=== PATIENT | male | born 1990 | race African-American/Black ===

== ENCOUNTER 2016-08-31 20:30 | Emergency (ER) | payer SELFPAY ==
[~2016-08-31] VITALS: Ht 177.8 cm; Wt 85.7 kg
[2016-08-31] MEDS ORDERED: LORazepam 0.5 MG TAB PO ONE (21:45)
[2016-08-31] MEDS ORDERED: LORazepam 2MG/ML-1ML VIAL IV ONE (23:00)
[2016-09-01 02:26] LABS: Urine RBC None Seen /hpf (0 - 3)
[2016-09-01 02:34] LABS: Urine Bilirubin Negative (Negative); Urine Blood Negative /uL (Negative); Urine Color Colorless (Yellow); Urine Glucose Normal (Normal); Urine Ketone Negative (Negative); Urine Nitrite Negative (Negative); Urine Squamous Epithelial Cell FEW /hpf (<5); Urine Urobilinogen Normal (Negative)
[2016-09-01 03:30] VITALS: BP 110/60
== END 2016-09-01 03:32 | disposition home or self-care (01) ==
LOC: ER 20:53
DX: F41.9 Anxiety disorder, unspecified (principal)
CPT/HCPCS: 71010; 81001; 93005; 96374; 99285; G0434; J2060

== ENCOUNTER 2016-09-03 16:54 | Emergency (ER) | payer MEDICAID ==
[~2016-09-03] VITALS: Ht 175.3 cm; Wt 81.6 kg
[2016-09-03] MEDS ORDERED: OLANZapine 5 MG TAB PO ONE (18:00)
[2016-09-03 19:46] VITALS: BP 123/77
== END 2016-09-03 21:56 | disposition home or self-care (01) ==
LOC: ER 16:54 → EDBD 16:54 → ER 21:56
DX: F41.9 Anxiety disorder, unspecified (principal); F31.9 Bipolar disorder, unspecified; F20.9 Schizophrenia, unspecified; Z88.8 Allergy status to other drugs, medicaments and biological substances

== ENCOUNTER 2016-12-15 12:09 | Emergency (ER) | payer MEDICAID ==
[2016-12-15 12:09] VITALS: BP 116/76
[2016-12-15] MEDS ORDERED: LORazepam 2MG/ML-1ML VIAL IM ONE (13:15)
== END 2016-12-15 13:59 | disposition home or self-care (01) ==
LOC: ER 12:09
DX: F41.1 Generalized anxiety disorder (principal); F20.9 Schizophrenia, unspecified; F32.9 Major depressive disorder, single episode, unspecified
CPT/HCPCS: 93005; 96372; 99284; J2060

== ENCOUNTER 2017-03-28 05:20 | Emergency (ER) | payer MEDICAID ==
[~2017-03-28] VITALS: Ht 175.3 cm; Wt 79.4 kg
[2017-03-28 07:42] LABS: Basophils # (auto) 0 uL; Eosinophils # (auto) 0.2 uL; Eosinophils % (auto) 3.5 % (0.0-7.0); Hematocrit 44.1 % (41.0-53.0); Hemoglobin 14.3 g/dL (13.5-17.5); Lymphocytes # (auto) 2.1 uL; Lymphocytes % (auto) 46.1 % (10.0-50.0); Mean Corpuscular Hemoglobin 27.5 pg (28.0-32.0); Mean Corpuscular Hgb Conc. 32.5 g/dL (32.0-36.0); Mean Corpuscular Volume 84.7 fL (80.0-100.0); Mean Platelet Volume 9.9 fL (6.9-10.8); Monocytes # (auto) 0.4 uL; Monocytes % (auto) 8.4 % (0.0-12.0); Neutrophils # (auto) 1.8 uL; Nucleated Red Blood Cells % 0.2 %; Platelet Count (auto) 156 10^3/uL (140-450); Red Cell Distribution Width 13.8 % (11.8-14.3); White Blood Cell 4.5 10^3/uL (4.4-10.8)
[2017-03-28 08:20] LABS: BUN/Creatinine Ratio 10.1; Bilirubin, Total 0.4 mg/dL (0.2-1.0); Calcium 9.2 mg/dL (8.5-10.1); Potassium 3.8 mmol/L (3.5-5.1); Total Protein 7.6 g/dL (6.4-8.2)
[2017-03-28 08:26] VITALS: BP 112/78
== END 2017-03-28 08:48 | disposition home or self-care (01) ==
LOC: EDBD 05:20 → ER 05:37
DX: K59.00 Constipation, unspecified (principal); R10.13 Epigastric pain; Z88.8 Allergy status to other drugs, medicaments and biological substances
CPT/HCPCS: 36415; 74176; 80053; 82150; 83690; 85025

== ENCOUNTER 2020-12-13 07:04 | Emergency (ER) | payer MEDICAID ==
[~2020-12-13] VITALS: Ht 175.3 cm; Wt 77.1 kg
[2020-12-13] MEDS ORDERED: HALOPERIDOL LACTATE 5 MG/ML INJ VIAL IM ONE (07:45)
[2020-12-13] MEDS ORDERED: LORazepam 0.5 MG TAB PO ONE (07:45)
[2020-12-13] MEDS ORDERED: diphenhdrAMINE HCL 50 MG/1 ML VL IM ONE (08:15)
[2020-12-13 10:34] LABS: Basophils # (auto) 0.1 10 ^3/uL (0-0.2); Basophils % (auto) 1.1 % (0.0-2.0); Eosinophils # (auto) 0 10 ^3/uL (0-0.8); Eosinophils % (auto) 0.7 % (0.0-7.0); Hematocrit 41.7 % (41.0-53.0); Hemoglobin 13.7 g/dL (13.5-17.5); Lymphocytes # (auto) 1.5 10 ^3/uL (0.4-5.4); Monocytes # (auto) 0.5 10 ^3/uL (0-1.3); Monocytes % (auto) 9.7 % (0.0-12.0); Neutrophils % (auto) 59.5 % (37.0-80.0); Nucleated Red Blood Cells % 0.2 %; Red Cell Distribution Width 15.1 % (11.8-14.3); White Blood Cell 5.1 10^3/uL (4.4-10.8)
[2020-12-13 10:50] LABS: Albumin 4.3 g/dL (3.4-5.0); Anion Gap 4 (5-15); Blood Alcohol < 3.0 mg/dL (0-5); Blood Urea Nitrogen 14 mg/dL (7-18); Calcium 9.3 mg/dL (8.5-10.1); Carbon Dioxide 27 mmol/L (21-32); Chloride 110 mmol/L (98-107); Glucose 68 mg/dL (74-106); Potassium 3.9 mmol/L (3.5-5.1); Sodium 141 mmol/L (136-145)
[2020-12-13 10:51] LABS: Acetaminophen < 2.0 ug/mL (10-30); Salicylate < 1.7 mg/dL (2.8-20.0)
[2020-12-13 10:54] LABS: Alanine Aminotransferase 46 U/L (16-61); Alkaline Phosphatase 57 U/L (45-117); Aspartate Aminotransferase 82 U/L (15-37); Bilirubin, Total 1.6 mg/dL (0.2-1.0); GFR African American 104 mL/min; GFR Non-African American 86 mL/min; Total Protein 7.7 g/dL (6.4-8.2)
[2020-12-13 11:05] VITALS: BP 141/83
[2020-12-13 11:11] LABS: Urine Bacteria NONE SEEN /hpf (None Seen); Urine Blood Negative /uL (Negative); Urine Mucus FEW (None Seen); Urine Specific Gravity 1.029 (1.001-1.035); Urine WBC 1 /hpf (0 - 3)
[2020-12-13 11:26] LABS: Amphetamine Screen, Urine NEGATIVE (NEGATIVE); Barbiturate Scree,Urine NEGATIVE (NEGATIVE); Benzodiazephine Screen, Urine NEGATIVE (NEGATIVE); Cannabinoid Screen, Urine POSITIVE (NEGATIVE); Cocaine Screen, Urine NEGATIVE (NEGATIVE); Opiate Scree,Urine NEGATIVE (NEGATIVE); Phencyclidine Screen, Urine NEGATIVE (NEGATIVE)
== END 2020-12-13 18:30 | disposition home or self-care (01) ==
LOC: ER 07:04
DX: F31.9 Bipolar disorder, unspecified (principal); F20.9 Schizophrenia, unspecified; F12.90 Cannabis use, unspecified, uncomplicated; F41.9 Anxiety disorder, unspecified; R41.0 Disorientation, unspecified
CPT/HCPCS: 36415; 80053; 80307; 80320; 80329; 81001; 85025; 96372; 99284; J1630

== ENCOUNTER 2021-05-13 00:40 | Emergency (ER) | payer MEDICAID ==
[~2021-05-13] VITALS: Ht 175.3 cm; Wt 79.4 kg
[2021-05-13 02:25] VITALS: BP 108/79
== END 2021-05-13 02:38 | disposition home or self-care (01) ==
LOC: ER 00:42
DX: J06.9 Acute upper respiratory infection, unspecified (principal); R53.83 Other fatigue; Z88.8 Allergy status to other drugs, medicaments and biological substances; Z20.822 Contact with and (suspected) exposure to COVID-19
CPT/HCPCS: 36415; 87426

== ENCOUNTER 2021-10-17 21:56 | Emergency (ER) | payer MEDICAID ==
[~2021-10-17] VITALS: Ht 182.9 cm; Wt 77.1 kg
[2021-10-17 23:37] LABS: Basophils # (auto) 0 10 ^3/uL (0-0.2); Eosinophils # (auto) 0.1 10 ^3/uL (0-0.8); Eosinophils % (auto) 2.8 % (0.0-7.0); Hematocrit 38.8 % (41.0-53.0); Hemoglobin 13.3 g/dL (13.5-17.5); Lymphocytes # (auto) 1.6 10 ^3/uL (0.4-5.4); Lymphocytes % (auto) 46.5 % (10.0-50.0); Mean Corpuscular Hemoglobin 29.6 pg (28.0-32.0); Mean Corpuscular Hgb Conc. 34.3 g/dL (32.0-36.0); Mean Corpuscular Volume 86.2 fL (80.0-100.0); Monocytes # (auto) 0.3 10 ^3/uL (0-1.3); Monocytes % (auto) 8.2 % (0.0-12.0); Neutrophils # (auto) 1.4 10 ^3/uL (1.6-8.6); Neutrophils % (auto) 41.5 % (37.0-80.0); Nucleated Red Blood Cells % 0.1 %; Red Cell Distribution Width 14.7 % (11.8-14.3); White Blood Cell 3.4 10^3/uL (4.4-10.8)
[2021-10-17 23:50] LABS: Albumin 3.6 g/dL (3.4-5.0); Calcium 9.4 mg/dL (8.5-10.1); Potassium 3.8 mmol/L (3.5-5.1)
[2021-10-17 23:52] LABS: BUN/Creatinine Ratio 9.8
[2021-10-17 23:54] LABS: Bilirubin, Total 0.4 mg/dL (0.2-1.0); Total Protein 6.8 g/dL (6.4-8.2)
[2021-10-18] MEDS ORDERED: LORazepam 2MG/ML-1ML VIAL IV ONE ×2 (01:15→11:30)
[2021-10-18 07:27] VITALS: BP 120/89
[2021-10-18 11:22] LABS: Alcohol, Urine < 3.0 mg/dL (0-10); Amphetamine Screen, Urine NEGATIVE (NEGATIVE); Barbiturate Scree,Urine NEGATIVE (NEGATIVE); Benzodiazephine Screen, Urine NEGATIVE (NEGATIVE); Cannabinoid Screen, Urine NEGATIVE (NEGATIVE); Cocaine Screen, Urine NEGATIVE (NEGATIVE); Opiate Scree,Urine NEGATIVE (NEGATIVE); Phencyclidine Screen, Urine NEGATIVE (NEGATIVE)
[2021-10-18 11:56] LABS: Urine Bacteria FEW /hpf (None Seen); Urine Blood Negative /uL (Negative); Urine Specific Gravity 1.015 (1.001-1.035); Urine WBC 3 /hpf (0 - 3)
[2021-10-18] MEDS ORDERED: HALOPERIDOL LACTATE 5 MG/ML INJ VIAL IM ONE (15:30)
[2021-10-18] MEDS ORDERED: HALOPERIDOL LACTATE 5 MG/ML INJ VIAL ONE (15:31)
== END 2021-10-18 16:12 | disposition left against medical advice (07) ==
LOC: EDBD 21:56 → ER 22:02
DX: R45.851 Suicidal ideations (principal); F41.9 Anxiety disorder, unspecified; F32.9 Major depressive disorder, single episode, unspecified; F20.9 Schizophrenia, unspecified; Z20.822 Contact with and (suspected) exposure to COVID-19
CPT/HCPCS: 36415; 80053; 80307; 81001; 85025; 87426; 96372; 96374; 96376; 99285; J1630; J2060

== ENCOUNTER 2021-12-13 00:39 | Emergency (ER) | payer MEDICAID ==
[2021-12-13] MEDS ORDERED: HALOPERIDOL LACTATE 5 MG/ML INJ VIAL IM ONE (01:30)
[2021-12-13 01:41] LABS: Basophils # (auto) 0 10 ^3/uL (0-0.2); Basophils % (auto) 1.2 % (0.0-2.0); Eosinophils # (auto) 0 10 ^3/uL (0-0.8); Hematocrit 41.9 % (41.0-53.0); Hemoglobin 13.9 g/dL (13.5-17.5); Lymphocytes # (auto) 1.8 10 ^3/uL (0.4-5.4); Lymphocytes % (auto) 51.1 % (10.0-50.0); Mean Corpuscular Hemoglobin 29.2 pg (28.0-32.0); Mean Corpuscular Hgb Conc. 33.1 g/dL (32.0-36.0); Mean Corpuscular Volume 88.4 fL (80.0-100.0); Monocytes # (auto) 0.2 10 ^3/uL (0-1.3); Monocytes % (auto) 6.7 % (0.0-12.0); Neutrophils # (auto) 1.4 10 ^3/uL (1.6-8.6); Nucleated Red Blood Cells % 0.3 %; Red Blood Cells 4.74 10^6/uL (4.5-5.90); Red Cell Distribution Width 14.3 % (11.8-14.3); White Blood Cell 3.5 10^3/uL (4.4-10.8)
[2021-12-13 02:07] LABS: Alanine Aminotransferase 22 U/L (16-61); Albumin 4.2 g/dL (3.4-5.0); Anion Gap 6 (5-15); Aspartate Aminotransferase 21 U/L (15-37); BUN/Creatinine Ratio 6.5; Blood Alcohol < 3.0 mg/dL (0-5); Blood Urea Nitrogen 8 mg/dL (7-18); Calcium 8.8 mg/dL (8.5-10.1); Carbon Dioxide 27 mmol/L (21-32); Chloride 108 mmol/L (98-107); GFR African American 88 mL/min; GFR Non-African American 73 mL/min; Glucose 86 mg/dL (74-106); Potassium 3.8 mmol/L (3.5-5.1); Salicylate 3.2 mg/dL (2.8-20.0); Sodium 141 mmol/L (136-145)
[2021-12-13 02:08] LABS: Acetaminophen < 2.0 ug/mL (10-30)
[2021-12-13 02:10] LABS: Alkaline Phosphatase 50 U/L (45-117); Bilirubin, Total 0.6 mg/dL (0.2-1.0); Total Protein 7.3 g/dL (6.4-8.2)
[2021-12-13 02:16] LABS: Urine Bacteria NONE SEEN /hpf (None Seen); Urine Blood Negative /uL (Negative); Urine Mucus FEW (None Seen); Urine Specific Gravity 1.022 (1.001-1.035); Urine WBC 13 /hpf (0 - 3)
[2021-12-13 02:28] LABS: Alcohol, Urine < 3.0 mg/dL (0-10); Barbiturate Scree,Urine NEGATIVE (NEGATIVE); Benzodiazephine Screen, Urine NEGATIVE (NEGATIVE); Cannabinoid Screen, Urine POSITIVE (NEGATIVE); Cocaine Screen, Urine NEGATIVE (NEGATIVE)
[2021-12-13 03:14] LABS: Amphetamine Screen, Urine NEGATIVE (NEGATIVE); Opiate Scree,Urine NEGATIVE (NEGATIVE); Phencyclidine Screen, Urine NEGATIVE (NEGATIVE)
[2021-12-13 03:45] VITALS: BP 105/56
== END 2021-12-13 03:44 | disposition left against medical advice (07) ==
LOC: ER 00:39
DX: F91.9 Conduct disorder, unspecified (principal); R45.851 Suicidal ideations; Z53.21 Procedure and treatment not carried out due to patient leaving prior to being seen by health care provider
CPT/HCPCS: 36415; 80053; 80307; 80320; 80329; 81001; 85025; J1630

== ENCOUNTER 2024-03-11 02:34 | Emergency (ER) | payer SELFPAY ==
[~2024-03-11] VITALS: Ht 177.8 cm; Wt 85.0 kg
[2024-03-11 03:00] VITALS: PULSE 52; RESP 10; O2SAT 96
[2024-03-11 04:18] LABS: Amphetamine Screen, Urine Neg (NEGATIVE); Barbiturate Scree,Urine Neg (NEGATIVE); Benzodiazephine Screen, Urine Neg (NEGATIVE); Cannabinoid Screen, Urine Pos (NEGATIVE); Cocaine Screen, Urine Neg (NEGATIVE); Opiate Scree,Urine Neg (NEGATIVE); Phencyclidine Screen, Urine Neg (NEGATIVE)
[2024-03-11] MEDS: OLANZapine 5 MG TAB PO SCH (11:29)
[2024-03-11 20:05] VITALS: PULSE 82; RESP 18; O2SAT 97
[2024-03-12 08:12] VITALS: BP 102/47; TEMP 98
[2024-03-12 08:17] VITALS: PULSE 50; RESP 15; O2SAT 100
== END 2024-03-12 09:49 | disposition left against medical advice (07) ==
LOC: ER 02:34 → EDBD 02:34 → ER 03-12 09:49
DX: R45.851 Suicidal ideations (principal); F41.9 Anxiety disorder, unspecified; F32.9 Major depressive disorder, single episode, unspecified; F20.9 Schizophrenia, unspecified; F12.90 Cannabis use, unspecified, uncomplicated; Z88.8 Allergy status to other drugs, medicaments and biological substances
CPT/HCPCS: 80307